=== PATIENT | male | born 1990 ===

== ENCOUNTER 2016-11-15 14:43 | Emergency (ER) | payer MEDICAID ==
--- NOTE | 2016-11-15 16:04 | C.PDOC ---
History Of Present Illness 26 y/o male presents to ED with complaints of sore throat for 3 days with associated body aches. 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 Time Seen by Provider: 11/15/16 15:53 Chief Complaint (Nursing): Flu-like Symptoms History Per: Patient History/Exam Limitations: no limitations Onset/Duration Of Symptoms: Days Associated Symptoms: Sore Throat Past Medical History Reviewed: Historical Data, Nursing Documentation, Vital Signs Vital Signs: Last Vital Signs Temp 97.8 F 11/15/16 16:18 Pulse 60 11/15/16 16:18 Resp 16 11/15/16 16:18 BP 130/70 11/15/16 16:18 Pulse Ox 100 11/15/16 16:18 Surgical History: No Surg Hx Family History: States: No Known Family Hx - Social History Hx Alcohol Use: Yes Hx Substance Use: No Review Of Systems Except As Marked, All Systems Reviewed And Found Negative. Constitutional: Negative for: Fever, Chills ENT: Positive for: Throat Swelling Cardiovascular: Negative for: Chest Pain Respiratory: Negative for: Shortness of Breath Gastrointestinal: Negative for: Nausea, Vomiting Skin: Negative for: Rash Neurological: Negative for: Weakness, Numbness Physical Exam - Physical Exam Appears: Non-toxic, No Acute Distress Skin: Warm, Dry, No Rash Head: Atraumatic, Normacephalic Eye(s): bilateral: Normal Inspection, EOMI Oral Mucosa: Moist Throat: Erythema, No Exudate, No Drooling, Other (Uvula midline) Neck: Normal ROM, Supple Chest: Symmetrical Cardiovascular: Rhythm Regular, No Murmur Respiratory: Normal Breath Sounds, No Rales, No Rhonchi, No Wheezing Gastrointestinal/Abdominal: Soft, No Tenderness, No Guarding, No Rebound Neurological/Psych: Oriented x3 ED Course And Treatment O2 Sat by Pulse Oximetry: 98 (RA) Pulse Ox Interpretation: Normal Disposition - Disposition Disposition: HOME/ ROUTINE Disposition Time: 15:57 Condition: STABLE Additional Instructions: Follow up with PMD within 1-2 days. Return to ED if feel worse. 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 - Scribe Statement The provider has reviewed the documentation as recorded by the Melinda Bonner All medical record entries made by the Melinda were at my direction and personally dictated by me. I have reviewed the chart and agree that the record accurately reflects my personal performance of the history, physical exam, medical decision making, and the department course for this patient. I have also personally directed, reviewed, and agree with the discharge instructions and disposition.
[2016-11-15 16:26] VITALS: BP 130/70; PULSE 60; RESP 16; TEMP 97.8
[2016-11-15 18:50] VITALS: O2SAT 98
== END 2016-11-15 16:32 | disposition home or self-care (01) ==
LOC: C.ER 14:43
DX: J02.9 Acute pharyngitis, unspecified (principal)

== ENCOUNTER 2017-01-27 10:32 | Emergency (ER) | payer MEDICAID ==
[2017-01-27 10:42] VITALS: O2SAT 100
--- NOTE | 2017-01-27 12:19 | C.PDOC ---
History Of Present Illness 26 y/o male presents to ED with c/o epigastric with nausea and vomiting, with associated abdominal pain, after eating "uncooked red velvet cake" last night. Patient states he noticed red color in vomitus. Notes he did not go to work today due to symptoms, requesting work note. Denies fever, chills, diarrhea, or other associated symptoms. Patient waiting 1 hour 45 minutes when I saw him. Time Seen by Provider: 01/27/17 12:17 Chief Complaint (Nursing): GI Problem History Per: Patient History/Exam Limitations: no limitations Current Symptoms Are (Timing): Still Present Recent travel outside of the [place]: No Past Medical History Reviewed: Historical Data, Nursing Documentation, Vital Signs Vital Signs: Last Vital Signs Temp 98.0 F 01/27/17 13:02 Pulse 53 L 01/27/17 13:02 Resp 16 01/27/17 13:02 BP 122/59 L 01/27/17 13:02 Pulse Ox 100 01/27/17 13:02 - Medical History PMH: No Chronic Diseases Family History: States: Unknown Family Hx - Social History Hx Alcohol Use: Yes Hx Substance Use: No - Immunization History Hx Tetanus Toxoid Vaccination: No Hx Influenza Vaccination: Yes (2016) Hx Pneumococcal Vaccination: No Review Of Systems Except As Marked, All Systems Reviewed And Found Negative. Constitutional: Negative for: Fever, Chills Cardiovascular: Negative for: Chest Pain Respiratory: Negative for: Cough, Shortness of Breath, Wheezing Gastrointestinal: Positive for: Nausea, Vomiting, Abdominal Pain. Negative for : Diarrhea Skin: Negative for: Rash Physical Exam - Physical Exam Appears: Non-toxic, No Acute Distress Skin: Normal Color, Warm, Dry Head: Atraumatic, Normacephalic Oral Mucosa: Moist Chest: Symmetrical Cardiovascular: Rhythm Regular, No Murmur Respiratory: Normal Breath Sounds, No Rales, No Rhonchi, No Wheezing Gastrointestinal/Abdominal: Soft, No Tenderness, No Guarding, No Rebound Back: Normal Inspection, No CVA Tenderness Extremity: Normal ROM Neurological/Psych: Oriented x3, Normal Speech, Normal Cognition ED Course And Treatment O2 Sat by Pulse Oximetry: 100 (RA) Pulse Ox Interpretation: Normal Medical Decision Making Medical Decision Making: Impression: nausea/vomiting Plan: * Zofran Progress: Patient resting comfortable in bed in no distress. He is on his phone and now asking for discharge. He wants work note. Disposition Counseled Patient/Family Regarding: Need For Followup, Rx Given - Disposition Referrals: [facility] [Outside] [facility] [employer] [facility] [Outside] Disposition: HOME/ ROUTINE Disposition Time: 12:45 Condition: GOOD Additional Instructions: Follow up with your primary medical doctor or clinic in 2-5 days for further evaluation. Return to the emergency department at any time if symptoms persist or worsen. 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 - Scribe Statement The provider has reviewed the documentation as recorded by the Scribe SM All medical record entries made by the Scribe were at my direction and personally dictated by me. I have reviewed the chart and agree that the record accurately reflects my personal performance of the history, physical exam, medical decision making, and the department course for this patient. I have also personally directed, reviewed, and agree with the discharge instructions and disposition.
[2017-01-27 13:03] VITALS: BP 122/59; PULSE 53; RESP 16; TEMP 98
== END 2017-01-27 13:03 | disposition home or self-care (01) ==
LOC: C.ER 10:32
DX: R11.10 Vomiting, unspecified (principal)